=== PATIENT | male | born 1955 | race Caucasian/White ===

== ENCOUNTER 2024-08-26 04:20 | Day surgery (SDC) | payer OTHER ==
[2024-08-17 13:02] VITALS: BMI 27.5
[2024-08-26 10:04] VITALS: RESP 16; TEMP 98
[2024-08-26 10:27] VITALS: PULSE 60
[2024-08-26 10:39] VITALS: BP 123/67
== END 2024-08-26 10:39 | disposition home or self-care (01) ==
LOC: JASU-ENDO 04:20
PROVIDERS: ATTEND Internal Medicine Gastroenterology
PROC: 0DBP8ZX Excision of Rectum, Via Natural or Artificial Opening Endoscopic, Diagnostic (ICD-10-PCS; principal; 2024-08-26 10:00)
DX: Z12.11 Encounter for screening for malignant neoplasm of colon (principal); D12.8 Benign neoplasm of rectum; K64.8 Other hemorrhoids; Z86.0100 Personal history of colon polyps, unspecified; Z80.0 Family history of malignant neoplasm of digestive organs
CPT/HCPCS: 88305-TC